=== PATIENT | female | born 1960 | race Caucasian/White ===

== ENCOUNTER 2020-10-18 15:53 | Emergency (ER) | payer BC ==
[~2020-10-18] VITALS: Ht 154.9 cm; Wt 65.8 kg
[2020-10-18 15:59] VITALS: BP_SYST 155
[2020-10-18] MEDS ORDERED: KETOROLAC TROMETHAMINE 60 MG/2 ML VIAL IM ONE (16:30)
[2020-10-18 17:38] VITALS: BP_SYST 155
== END 2020-10-18 17:38 | disposition home or self-care (01) ==
LOC: SED 15:53
DX: S52.532A Colles' fracture of left radius, initial encounter for closed fracture (principal); S80.212A Abrasion, left knee, initial encounter; S00.83XA Contusion of other part of head, initial encounter; Z91.040 Latex allergy status; W01.0XXA Fall on same level from slipping, tripping and stumbling without subsequent striking against object, initial encounter; Y93.89 Activity, other specified; Y92.89 Other specified places as the place of occurrence of the external cause; Y99.8 Other external cause status
CPT/HCPCS: 29125; 73080; 73090; 73110; 73564; 99284; J1885; 99285